=== PATIENT | male | born 1960 | race Caucasian/White ===

== ENCOUNTER → 2017-10-11 | Outpatient (CLI) | payer OTHER | LOC: COL.RAD 10-09 16:02 | DX: R10.9 Unspecified abdominal pain (principal); K85.90 Acute pancreatitis without necrosis or infection, unspecified; R12 Heartburn; E80.6 Other disorders of bilirubin metabolism | CPT/HCPCS: A9537 ==

== ENCOUNTER → 2021-03-31 | Outpatient (CLI) | payer OTHER | LOC: COL.RAD 13:17 | DX: M25.551 Pain in right hip (principal) | CPT/HCPCS: J3301; Q9967 ==